=== PATIENT | female | born 1970 | race Two or more races ===

== ENCOUNTER 2016-08-09 23:27 | Emergency (ER) | payer SELFPAY ==
[~2016-08-09] VITALS: Ht 157.5 cm; Wt 61.2 kg
--- NOTE | 2016-08-09 23:35 | NUR ---
ALIYAH CADETD IS AT THE BEDSIDE.
--- NOTE | 2016-08-09 23:36 | NUR ---
DR. RODRIGES IS AT THE BEDSIDE.
[2016-08-09] MEDS ORDERED: HYDROCODONE/APAP 5/325MG 1 EACH TABLET ONE (23:55)
[2016-08-10] MEDS ORDERED: HYDROCODONE/APAP 5/325MG 1 EACH TABLET PO ONE
--- NOTE | 2016-08-10 00:05 | NUR ---
PT IS GOING TO CT VIA .
--- NOTE | 2016-08-10 00:12 | NUR ---
PT REC'D WARM BLANKETS. PT'S IS AT THE BEDSIDE.
--- NOTE | 2016-08-10 00:18 | NUR ---
PT RETURNED FROM CT VIA WC.
--- NOTE | 2016-08-10 00:45 | NUR ---
Patient discharged to home in stable condition. Written and verbal after care instructions given. Patient verbalizes understanding of instruction AND RX. PT AMBULATED OUT WITH A STEADY GAIT. VSS. PT'S IS DRIVING PT HOME.
[2016-08-10 00:47] VITALS: BP 146/87
== END 2016-08-10 00:49 | disposition home or self-care (01) ==
LOC: ER 23:29
DX: S09.90XA Unspecified injury of head, initial encounter (principal); S00.83XA Contusion of other part of head, initial encounter; I10 Essential (primary) hypertension; R51 Headache; Y04.2XXA Assault by strike against or bumped into by another person, initial encounter; Y93.89 Activity, other specified; Y92.89 Other specified places as the place of occurrence of the external cause; Y99.9 Unspecified external cause status
CPT/HCPCS: 70450-TC; 70486-TC; A4606; Z7610